=== PATIENT | male | born 1985 | race African-American/Black ===

== ENCOUNTER 2017-07-28 13:35 | Emergency (ER) | payer OTHER ==
[~2017-07-28] VITALS: Ht 182.9 cm; Wt 109.8 kg
[2017-07-28] MEDS ORDERED: IBUPROFEN 600 MG TAB PO ONE (19:00)
[2017-07-28] MEDS ORDERED: CYCLOBENZAPRINE HCL 10 MG TAB PO ONE (19:00)
[2017-07-28 19:05] VITALS: BP 128/92
== END 2017-07-28 19:15 | disposition home or self-care (01) ==
LOC: ER 13:51
DX: S86.912A Strain of unspecified muscle(s) and tendon(s) at lower leg level, left leg, initial encounter (principal); X58.XXXA Exposure to other specified factors, initial encounter; Y93.01 Activity, walking, marching and hiking; Y92.89 Other specified places as the place of occurrence of the external cause; Y99.8 Other external cause status
CPT/HCPCS: 73562